=== PATIENT | female | born 1965 | race African-American/Black ===

== ENCOUNTER 2017-08-11 14:14 | Emergency (ER) | payer MEDICAID ==
[~2017-08-11 14:14] MED LIST: AMLO5TAB88; CLON0.5T4; FAMO-135 PO; HYDR-3511 PO; LISI10TA5; ONDA4TAB5; [UNRECOGNIZED DRUG - REMARK]
== END 2017-08-11 14:47 | disposition left against medical advice (07) ==
LOC: ER 14:47
DX: Z53.21 Procedure and treatment not carried out due to patient leaving prior to being seen by health care provider (principal)

== ENCOUNTER 2020-06-10 15:18 | Emergency (ER) | payer MEDICAID ==
[~2020-06-10] VITALS: Ht 167.6 cm; Wt 73.3 kg
[~2020-06-10 15:18] MED LIST changes: -HYDR-3511 PO; +HYDR-3512 PO
[2020-06-10 15:20] VITALS: BP 169/94
[2020-06-10 20:32] LABS: CHLORIDE 109 mEq/L (98-107)
[2020-06-10 20:35] LABS: BASOPHILS % 0.8 % (0.0-2.0); EOSINOPHILS % 0.7 % (0.0-5.0); HEMATOCRIT. 35.2 % (36.0-48.0); LYMPHOCYTES % 51.8 % (20.0-50.0); MEAN CORPUSCULAR HEMOGLOBIN 29.5 pg (28.0-32.0); MEAN CORPUSCULAR VOLUME 86.4 fL (81.0-99.0); MEAN PLATELET VOLUME 8.2 fl (7.4-10.4); MONOCYTES % 5.4 % (2.0-8.0); NEUTROPHILS % 41.3 % (40.0-76.0); PLATELET 218 x1000/uL (130-400); RED BLOOD CELL COUNT 4.07 mill/uL (4.2-5.4); RED CELL DISTRIBUTION WIDTH 13.7 % (11.6-14.6)
== END 2020-06-10 21:55 | disposition home or self-care (01) ==
LOC: ER 15:18
DX: B09 Unspecified viral infection characterized by skin and mucous membrane lesions (principal); I10 Essential (primary) hypertension; Z79.899 Other long term (current) drug therapy; Z88.8 Allergy status to other drugs, medicaments and biological substances; Z87.19 Personal history of other diseases of the digestive system
CPT/HCPCS: 36415; 80053; 85025; 86592; 99283

== ENCOUNTER 2021-11-26 01:24 | Emergency (ER) | payer MEDICAID ==
[~2021-11-26] VITALS: Ht 167.6 cm; Wt 80.3 kg
[~2021-11-26 01:24] MED LIST changes: +CLON0.2T PO; +HYDR-523 PO; +HYDR2TAB4 PO; +LISI10TA26; -LISI10TA5; +PHEN100C4 PO
[2021-11-26] MEDS ORDERED: IBUPROFEN 600MG TABLET PO ONE (03:15)
[2021-11-26] MEDS ORDERED: NAPR-1176 MT (04:37)
[2021-11-26 04:46] VITALS: BP 155/80
== END 2021-11-26 04:46 | disposition home or self-care (01) ==
LOC: ER 01:24
DX: M25.551 Pain in right hip (principal); I10 Essential (primary) hypertension; Z88.9 Allergy status to unspecified drugs, medicaments and biological substances; Z79.899 Other long term (current) drug therapy; Z98.890 Other specified postprocedural states
CPT/HCPCS: 73502; 99283

== ENCOUNTER 2022-03-17 21:15 | Emergency (ER) | payer MEDICAID ==
[~2022-03-17] VITALS: Ht 170.2 cm; Wt 70.0 kg
[~2022-03-17 21:15] MED LIST changes: +NAPR-1176 MT
[2022-03-17] MEDS ORDERED: SODIUM CHLORIDE 0.9% 1,000 ML IV ONE (21:30)
[2022-03-17] MEDS ORDERED: HALOPERIDOL LACTATE 5MG/ML VIAL IM ONE (21:45)
[2022-03-17] MEDS ORDERED: DIPHENHYDRAMINE 50MG/ML VIAL IV ONE (21:45)
[2022-03-17] MEDS ORDERED: ONDANSETRON HCL 4MG/2ML INJ IV ONE (21:45)
[2022-03-17] MEDS ORDERED: MORPHINE SULFATE 4 MG/ML CPJ (NOT FOR IM USE) IV ONE (21:45)
[2022-03-17] MEDS ORDERED: FAMOTIDINE 20MG/2ML VIAL IV ONE (21:45)
[2022-03-17] MEDS ORDERED: VISCOUS LIDOCAINE 2% 15 ML UDC MM STA (21:52)
[2022-03-17] MEDS ORDERED: MAGNESIUM/ALUMINUM HYDROXIDE/SIMETHICONE 30ML UDC PO ONE (22:00)
[2022-03-17 22:07] LABS: BASOPHILS % 0.7 % (0.0-2.0); EOSINOPHILS % 0.4 % (0.0-5.0); HEMATOCRIT. 46.8 % (36.0-48.0); HEMOGLOBIN. 15.7 g/dL (12.0-16.0); LYMPHOCYTES % 39.6 % (20.0-50.0); MEAN CORPUSCULAR HEMOGLOBIN 28.6 pg (28.0-32.0); MEAN CORPUSCULAR VOLUME 85.3 fL (81.0-99.0); MEAN PLATELET VOLUME 7.9 fl (7.4-10.4); MONOCYTES % 6.5 % (2.0-8.0); NEUTROPHILS % 52.8 % (40.0-76.0); PLATELET 315 x1000/uL (130-400); RED BLOOD CELL COUNT 5.49 mill/uL (4.2-5.4); RED CELL DISTRIBUTION WIDTH 13.8 % (11.6-14.6)
[2022-03-17 22:13] LABS: CHLORIDE 105 mEq/L (98-107)
[2022-03-17 22:15] LABS: INR 1.1; PROTHROMBIN TIME 11.4 sec (9.6-11.0)
[2022-03-17 22:23] LABS: ETHANOL BLOOD < 10 mg/dL
[2022-03-17 23:50] LABS: CLARITY URINE CLOUDY (CLEAR); COLOR URINE DARK YELLOW (YELLOW); KETONES URINE 1+ (NEGATIVE); LEUKOCYTE ESTERASE URINE NEGATIVE (NEGATIVE); NITRITE URINE NEGATIVE (NEGATIVE); OCCULT BLOOD URINE NEGATIVE (NEGATIVE); PH URINE 5.5 (4.5-8.0); PROTEIN URINE 3+ (NEGATIVE); SPECIFIC GRAVITY URINE 1.034 (1.005-1.030)
[2022-03-18 00:11] LABS: *AMPHETAMINES SCREEN URINE NEGATIVE (NEGATIVE); *BARBITURATES SCREEN URINE NEGATIVE (NEGATIVE); *BENZODIAZEPINES SCREEN URINE NEGATIVE (NEGATIVE); *COCAINE SCREEN URINE NEGATIVE (NEGATIVE); CANNABINOID URINE SCREEN PRESUMTIVE POSITIVE (NEGATIVE); METHADONE URINE SCREEN NEGATIVE (NEGATIVE); OPIATES URINE SCREEN PRESUMTIVE POSITIVE (NEGATIVE); PHENCYCLIDINE URINE SCREEN NEGATIVE (NEGATIVE)
[2022-03-18 02:00] VITALS: BP 154/86
== END 2022-03-18 02:21 | disposition home or self-care (01) ==
LOC: ER 21:15
DX: R10.13 Epigastric pain (principal); R11.2 Nausea with vomiting, unspecified; Z87.891 Personal history of nicotine dependence; F12.10 Cannabis abuse, uncomplicated; I10 Essential (primary) hypertension
CPT/HCPCS: 36415; 71045; 74176; 80053; 80305; 80320; 81003; 83690; 83880; 84484; 85025; 85610; 93005; 96361; 96372; 96374; 96375; 99285; J1200; J1630; J2270; J2405; J3490; J7030; Z7610; G0480

== ENCOUNTER 2022-05-02 14:00 | Emergency (ER) | payer MEDICAID ==
[~2022-05-02] VITALS: Ht 167.6 cm; Wt 74.0 kg
[2022-05-02 14:18] VITALS: BP 176/92
[2022-05-02] MEDS ORDERED: METRONIDAZOLE 500 MG PREMIX 100 ML IV ONE (16:15)
== END 2022-05-02 18:00 | disposition home or self-care (01) ==
LOC: ER 14:00
DX: K04.7 Periapical abscess without sinus (principal); Z88.9 Allergy status to unspecified drugs, medicaments and biological substances; Z79.899 Other long term (current) drug therapy; F12.10 Cannabis abuse, uncomplicated
CPT/HCPCS: 96365; 99284; J3490

== ENCOUNTER 2025-01-18 17:49 | Inpatient (IN) | payer MEDICAID, OTHER ==
[~2025-01-18] VITALS: Ht 167.6 cm; Wt 82.0 kg
[2025-01-18 17:52] VITALS: O2SAT 100
[2025-01-18] MEDS: KETOROLAC 30MG/ML VIAL IM ONE (18:12)
[2025-01-18] MEDS: CYCLOBENZAPRINE 10MG TABLET PO ONE (18:12)
[2025-01-18 19:18] LABS: BASOPHILS % 0.4 % (0.0-2.0); EOSINOPHILS % 0.0 % (0.0-5.0); HEMATOCRIT. 41.8 % (36.0-48.0); HEMOGLOBIN. 14.3 g/dL (12.0-16.0); LYMPHOCYTES % 11.4 % (20.0-50.0); MEAN PLATELET VOLUME 8.0 fl (7.4-10.4); MONOCYTES % 7.0 % (2.0-8.0); NEUTROPHILS % 81.2 % (40.0-76.0); PLATELET 226 x1000/uL (130-400); RED BLOOD CELL COUNT 4.90 mill/uL (4.2-5.4); RED CELL DISTRIBUTION WIDTH 13.9 % (11.6-14.6)
[2025-01-18 19:33] LABS: CREATININE 1.4 mg/dL (0.6-1.0); UREA NITROGEN BLOOD 15 mg/dL (9-23)
[2025-01-18 19:34] LABS: ETHANOL BLOOD < 10 mg/dL (<10); TROPONIN I HIGH SENSITIVITY < 4 ng/L (3.0-34)
[2025-01-18 19:35] LABS: ASPARTATE AMINOTRANSFERASE 36 IU/L (<34); BILIRUBIN DIRECT < 0.1 mg/dL (<=3.0)
[2025-01-18 19:36] LABS: BILIRUBIN TOTAL 0.3 mg/dL (0.1-1.0); PROTEIN TOTAL 8.8 g/dL (6.0-8.3)
[2025-01-18] MEDS ORDERED: MORPHINE SULFATE 2 MG/ML INJ (NOT FOR IM USE) IV ONE (20:00)
[2025-01-18] MEDS: MORPHINE SULFATE 2 MG/ML INJ (NOT FOR IM USE) IV ONE (21:35)
[2025-01-18] MEDS: SODIUM CHLORIDE 0.9% 1,000 ML IV ONE (21:36)
[2025-01-19] MEDS: ONDANSETRON HCL 4MG/2ML INJ IV ONE (02:02)
[2025-01-19] MEDS: MORPHINE SULFATE 2 MG/ML INJ (NOT FOR IM USE) IV ONE (02:02)
[2025-01-19 06:46] VITALS: BP 166/83; PULSE 87; RESP 18; TEMP 36.7; O2SAT 99
[2025-01-19] MEDS ORDERED: IOHEXOL-300 100 ML BOTTLE ONE (07:01)
[2025-01-19 08:00] VITALS: BP 157/72; PULSE 89; RESP 18; TEMP 36.2; O2SAT 97
== END 2025-01-19 11:40 | disposition left against medical advice (07) | DRG 145 ==
LOC: ER 17:49 → 6EST 01-19 02:06 → EDBEDREQ 01-19 02:13 → EDBEDREQTM 01-19 02:13
PROVIDERS: ADMIT Internal Medicine; ATTEND Internal Medicine
DX: R07.81 Pleurodynia (principal); N17.0 Acute kidney failure with tubular necrosis; D25.9 Leiomyoma of uterus, unspecified; I10 Essential (primary) hypertension; Z53.29 Procedure and treatment not carried out because of patient's decision for other reasons; Z55.6 Problems related to health literacy
CPT/HCPCS: 36415; 71101; 74177; 80048; 80076; 80320; 82550; 84484; 85025; 96361; 96372; 96374; 96376; 99285; J1885; J2270; J2405; J7030; Q9967; G0480